=== PATIENT | male | born 1990 | race Caucasian/White ===

== ENCOUNTER 2020-04-21 17:07 | Observation (INO) | payer OTHER ==
[~2020-04-21] VITALS: Ht 170.1 cm; Wt 64.5 kg
[2020-04-21] MEDS ORDERED: PATIENT MAY USE OWN MEDS, ALL PO SCH (17:15)
[2020-04-21 17:28] VITALS: BP 132/78
--- NOTE | 2020-04-21 17:38 | NUR ---
ANN MARIE WAY S admitted to room 418-1, with an admitting diagnosis of Rhabdo, on 04/21/20 from home via ambulatory, accompanied by staff. ANN MARIE WAY introduced to surroundings, call light, bed controls, phone, TV, temperature control, lights, meal times, smoking policy, visitor policy, side rail policy, bathrooms and showers. Patient Rights given to patient in the handbook. ANN MARIE WAY verbalizes understanding that [facility] is not responsible for the loss or damage to any personal effects or valuables that are kept in the patients possession during their hospitalization. The following Patient Care Plans were discussed with the patient: Discharge Planning, pain management, dehydration, and medications. ANN MARIE WAY verbalizes understanding of Interdisciplinary Patient Education. Patient and/or family were informed about the Rapid Response Team and its purpose.
[2020-04-21 17:44] LABS: BASOPHILS % (AUTO) 0 % (0-10); EOSINOPHILS # (AUTO) 0.1 10^3/uL (0.0-0.3); EOSINOPHILS % (AUTO) 1 % (0-10); HEMATOCRIT 47 % (40-54); HEMOGLOBIN 16.1 G/DL (13.3-17.7); LYMPHOCYTES # (AUTO) 1.8 X 10^3 (1.0-4.0); LYMPHOCYTES % (AUTO) 18 % (12-44); MEAN CORPUSCULAR HEMOGLOBIN 29 PG (25-34); MEAN CORPUSCULAR HGB CONC 34 G/DL (32-36); MEAN CORPUSCULAR VOLUME 84 FL (80-99); MEAN PLATELET VOLUME 9.3 FL (7.4-10.4); MONOCYTES # (AUTO) 0.5 X 10^3 (0.0-1.0); MONOCYTES % (AUTO) 5 % (0-12); NEUTROPHILS # (AUTO) 7.6 X 10^3 (1.8-7.8); NEUTROPHILS % (AUTO) 76 % (42-75); PLATELET COUNT 377 10^3/uL (130-400); RED CELL DISTRIBUTION WIDTH 13.7 % (10.0-14.5)
[2020-04-21 17:57] LABS: ALBUMIN 4.4 GM/DL (3.2-4.5); CHLORIDE 105 MMOL/L (98-107); POTASSIUM 3.7 MMOL/L (3.6-5.0); SODIUM 139 MMOL/L (135-145)
[2020-04-21 17:59] LABS: CALCIUM 9.3 MG/DL (8.5-10.1)
[2020-04-21 18:00] LABS: GLUCOSE 104 MG/DL (70-105)
[2020-04-21 18:01] LABS: CARBON DIOXIDE 22 MMOL/L (21-32)
[2020-04-21 18:02] LABS: BILIRUBIN,TOTAL 0.8 MG/DL (0.1-1.0)
[2020-04-21 18:03] LABS: ALKALINE PHOSPHATASE 58 U/L (40-136)
[2020-04-21 18:04] LABS: CREATININE SERUM 0.87 MG/DL (0.60-1.30); GFR ESTIMATED > 60
[2020-04-21 18:05] LABS: BUN/CREATININE RATIO 17
[2020-04-21 18:06] LABS: ALANINE AMINOTRANSFERASE 454 U/L (0-55)
[2020-04-21 18:17] LABS: BILIRUBIN,URINE NEGATIVE (NEGATIVE); CLARITY,URINE CLEAR; COLOR,URINE YELLOW; GLUCOSE, URINE (UA) NEGATIVE (NEGATIVE); KETONES,URINE NEGATIVE (NEGATIVE); LEUKOCYTE ESTERASE ,URINE NEGATIVE (NEGATIVE); NITRITE,URINE NEGATIVE (NEGATIVE); PH,URINE 6.5 (5-9); PROTEIN,URINE 2+ (NEGATIVE)
[2020-04-21] MEDS: NS IV 1000 ML 1,000 ML IV SCH ×3 (18:20→20:36)
[2020-04-21 18:22] LABS: BACTERIA,URINE NEGATIVE /HPF; RBC,URINE RARE /HPF; SQUAMOUS EPITHELIAL CELL,UR RARE /HPF
[2020-04-21 18:26] LABS: CREATINE KINASE MB 27.7 NG/ML (<6.6)
--- OUTSIDE RECORDS SUMMARY | 2020-04-21 18:55 | XMS REPORT | Continuity of Care Document ---
Author Organization Unknown Address Unknown Phone Unavailable Allergies Active Description Code Type Severity Reaction Onset Reported/Identified Relationship to Patient Clinical Status Yes No Known Drug Allergies [id number] Drug Allergy Unknown N/A 04/21/2020 Medications There is no data. Problems There is no data. Procedures There is no data. Results Test Result Range Complete blood count (CBC) with automate d white blood cell (WBC) differential - 04/21/20 17:35 Blood leukocytes automated count (number/volume) 10.0 10*3/uL 4.3-11.0 Blood erythrocytes automated count (number/volume) 5.64 10*6/uL 4.35-5.85 Venous blood hemoglobin measurement (mass/volume) 16.1 g/dL 13.3-17.7 Blood hematocrit (volume fraction) 47 % 40-54 Automated erythrocyte mean corpuscular volume 84 [ foz_us] 80-99 Automated erythrocyte mean corpuscular h emoglobin (mass per erythrocyte) 29 pg 25-34 Automated erythrocyte mean corpuscular h emoglobin concentration measurement (mass/volume) 34 g/dL 32-36 Automated erythrocyte distribution width ratio 13. 7 % 10.0- 14.5 Automated blood platelet count (count/volume) 377 10*3/uL 130-400 Automated blood platelet mean volume measurement 9.3 [foz_us] 7.4-10.4 Automated blood neutrophils/100 leukocytes 76 % 42-75 Automated blood lymphocytes/100 leukocytes 18 % 12-44 Blood monocytes/100 leukocytes 5 % 0-12 Automated blood eosinophils/100 leukocytes 1 % 0-10 Automated blood basophils/100 leukocytes 0 % 0-10 Blood neutrophils automated count (number/volume) 7.6 10*3 1.8-7.8 Blood lymphocytes automated count (number/volume) 1.8 10*3 1.0-4.0 Blood monocytes automated count (number/volume) 0. 5 10*3 0.0-1.0 Automated eosinophil count 0.1 10*3/uL 0 .0-0.3 Automated blood basophil count (count/volume) 0.0 10*3/uL 0.0-0.1 Comprehensive metabolic panel - 04/21/20 17:35 Serum or plasma sodium measurement (moles/volume) 139 mmol/L 135-145 Serum or plasma potassium measurement (moles/volume) 3.7 mmol/L 3.6-5.0 Serum or plasma chloride measurement (moles/volume) 105 mmol/L 98-107 Carbon dioxide 22 mmol/L 21-32 Serum or plasma anion gap determination (moles/volume) 12 mmol/L 5-14 Serum or plasma urea nitrogen measurement (mass/volume ) 15 mg/dL 7-18 Serum or plasma creatinine measurement (mass/volume) 0.87 mg/dL 0.60-1.30 Serum or plasma urea nitrogen/creatinine mass ratio 17 NRG Serum or plasma creatinine measurement w ith calculation of estimated glomerular filtration rate > NRG Serum or plasma glucose measurement (mass/volume) 104 mg/dL 70-105 Serum or plasma calcium measurement (mass/volume) 9.3 mg/dL 8.5-10.1 Serum or plasma total bilirubin measurement (mass/volu me) 0.8 mg/dL 0.1-1.0 Serum or plasma alkaline phosphatase shamika surement (enzymatic activity/volume) 58 U/L 40-136 Serum or plasma aspartate aminotransfera se measurement (enzymatic activity/volume) 1495 U/L 5-34 Serum or plasma alanine aminotransferase measurement (enzymatic activity/volume) 454 U/L 0-55 Serum or plasma protein measurement (mass/volume) 7.0 g/dL 6.4-8.2 Serum or plasma albumin measurement (mass/volume) 4.4 g/dL 3.2-4.5 CALCIUM CORRECTED 9.0 mg/dL 8.5-10.1 Serum or plasma creatine kinase MB measu rement (enzymatic activity/volume) - 04/21/20 17:35 Serum or plasma creatine kinase MB measu rement (enzymatic activity/volume) 27.7 ng/mL <6.6 Myoglobin, serum - 04/21/20 17:35 Myoglobin, serum 28973.0 ng/mL 10.0-92.0 Complete urinalysis with reflex to cultu re - 04/21/20 18:09 Urine color determination YELLOW NRG Urine clarity determination CLEAR NR G Urine pH measurement by test strip 6.5 5-9 Specific gravity of urine by test strip <= 1.016-1.022 Urine protein assay by test strip, semi-quantitative 2+ NEGATIVE Urine glucose detection by automated test strip NE GATIVE NEGATIVE Erythrocytes detection in urine sediment by light micr oscopy 3+ NEGATIVE Urine ketones detection by automated test strip NE GATIVE NEGATIVE Urine nitrite detection by test strip NEGATIVE NEGATIVE Urine total bilirubin detection by test strip NEGA TIVE NEGATIVE Urine urobilinogen measurement by automated test strip (mass/volume) 0.2 mg/dL < = 1.0 Urine leukocyte esterase detection by dipstick NEG ATIVE NEGATIVE Automated urine sediment erythrocyte cou nt by microscopy (number/high power field) RARE NRG Automated urine sediment leukocyte count by microscopy (number/high power field) NONE NRG Bacteria detection in urine sediment by light microsco py NEGATIVE NRG Squamous epithelial cells detection in u rine sediment by light microscopy RARE NRG Crystals detection in urine sediment by light microsco py NONE NRG Casts detection in urine sediment by light microscopy NONE NRG Mucus detection in urine sediment by light microscopy NEGATIVE NRG Complete urinalysis with reflex to culture NO NRG Encounters ACCT No. Visit Date/Time Discharge Status Pt. Type Provider Facility Loc./Unit Complaint [id number] 09/14/2019 11:46:35 09/14/2019 23:59:5 9 CLS Outpatient [id number] 04/21/2020 17:16:[address] Inpatient RUSSELL LAMA DO [facility] 4TH RHABDOMYOLYSIS
--- OUTSIDE RECORDS SUMMARY | 2020-04-21 18:55 | XMS REPORT | CCD ---
Author Author Nathaniel Sharma D.O. [employer] Organization RUSSELL SHARMA DO [facility] Address [address] [place] [address] Phone Care Team Providers Care Director Market Intelligence Name Role Phone PP Unavailable CCM Unavailable Summary Purpose Interface Exchange Insurance Providers Payer name Policy type / Coverage type Covered democrat ID Effective Begin Date Effective End Date ABS FOR [employer] Commercial Insurance [id number] Unknown Family history Grandmother Diagnosis Age At Onset Cancer Unknown Grandmother Diagnosis Age At Onset Diabetes mellitus Type 2 Unknown Mother Diagnosis Age At Onset Hypertension Unknown Grandfather Diagnosis Age At Onset Lung Cancer Unknown Social History Social History Element Codes Description Effective Dates Marital status Unknown S verna 02/24/2019 Employment Unknown Curre ntly employed [employer] 02/24/[address]: 013774387 Currently uses smokeless tobacco quit 9 years ago 02/24/[address]: 355655 Currently drinks alcohol occasional 02/24/2019 Frequency of drinks SNOMED CT: 047859293 Drinks rarely 02/24/2019 Has the patient ever used illegal drugs? Unknown Has never used illegal drugs 019 Allergies, Adverse Reactions, Alerts Substance Reaction Codes Entered Date Inactivated Date Status * NO KNOWN FOOD VANDANA RGIES Unknown 02/24/2019 No Inactive Date Active * NO KNOWN ENVIRONME NTAL ALLERGIES Unknown 02/24/2019 No Inactive Date Active * NO KNOWN DRUG VANDANA RGIES Unknown 02/24/2019 No Inactive Date Active Past Medical History Illness Codes Condition Status Onset Date Resolved Date Allergic rhinitis du e to pollen ICD-9: 477.9 ICD-10: J30.1 Active 06/29/2019 Unknown Acute cystitis witho ut hematuria ICD-9: 595.0 ICD-10: N30.00 Active 02/24/2019 Unknown Frequency of micturi tion ICD-9: 788.41 ICD-10: R35.0 Active 02/24/2019 Unknown Low back pain ICD-9: 599.70 ICD-10: M54.5 Active 02/24/2019 Unknown Problems Condition Codes Effectiv e Dates Condition Status Allergic rhinitis du e to pollen ICD-9: 477.9 ICD-10: J30.1 06/29/2019 Active Acute cystitis witho ut hematuria ICD-9: 595.0 ICD-10: N30.00 02/24/2019 Active Frequency of micturi tion ICD-9: 788.41 ICD-10: R35.0 02/24/2019 Active Low back pain ICD-9: 599.70 ICD-10: M54.5 02/24/2019 Active Medications Medication Codes Instruc tions Start Date Stop Date Sta tus Fill Instructions Cipro 500 mg tablet RxNorm: 295524 1 Tablet(s) PO BID 02/24/2019 03/05/2019 Inactive cetirizine 10 mg tablet RxNorm: 8577987 1 Tablet(s) PO QD as needed No Start Date Active Flonase Allergy Reli ef 50 mcg/actuation nasal spray,suspension RxNorm: 7396153 2 [place] NASAL QD No Start Date Active Medication Administered No Medication Administered data Immunizations No Immunization data Assessments Condition Codes Effectiv e Dates Allergic rhinitis due to pollen ICD- 10: J30.1 ICD-9: 477.9 06/29/2019 Low back pain ICD-10: M54.5 ICD-9: 599.70 02/24/2019 Acute cystitis without hematuria ICD -10: N30.00 ICD-9: 595.0 02/24/2019 Frequency of micturition ICD-10: R35 .0 ICD-9: 788.41 02/24/2019 Reason For Visit Reason For Visit Effective Dates Notes injection(s) 06/29/2019 ~generic 02/24/2019 New Patient---establishing visit Results Observation Observation Code Item Item Code Result Date COMPLETE BLOOD COUNT 7525167 WBC 4.8 10e9/L 02/24/2019 COMPLETE BLOOD COUNT 2738125 RBC 5.55 10e12/L 9 COMPLETE BLOOD COUNT 9958050 HEMOGLOBIN 16.0 g/dL 02/24/2019 COMPLETE BLOOD COUNT 1822639 HEMATOCRIT 48.0 % 02/24/2019 COMPLETE BLOOD COUNT 9695778 MCV 86.5 fL 02/24/2019 COMPLETE BLOOD COUNT 4904380 MCH 28.8 pg 02/24/2019 COMPLETE BLOOD COUNT 5996599 MCHC 33.3 g/dL 02/24/2019 COMPLETE BLOOD COUNT 2025800 PLATELET COUNT 398 10e9/L 02/24/2019 COMPLETE BLOOD COUNT 9685584 Mean Plt Volume 9.5 fL 02/24/2019 COMPLETE BLOOD COUNT 9028657 Neut Auto 51.1 % 02/24/2019 COMPLETE BLOOD COUNT 4610395 Lymph Auto 39.1 % 02/24/2019 COMPLETE BLOOD COUNT 4366797 Garza Auto 6.7 % 02/24/2019 COMPLETE BLOOD COUNT 3181361 RDW 12.7 % 02/24/2019 COMPLETE BLOOD COUNT 8360672 Eos Auto 2.5 % 02/24/2019 COMPLETE BLOOD COUNT 7199896 Baso Auto 0.6 % 02/24/2019 COMPLETE BLOOD COUNT 4245225 Neutrophil Abs 2.45 10e9/L 02/24/2019 COMPLETE BLOOD COUNT 3996997 Lymphocyte Abs 1.88 10e9/L 02/24/2019 COMPLETE BLOOD COUNT 1997036 Monocyte Abs 0.32 10e9/L 02/24/2019 COMPLETE BLOOD COUNT 4792241 Eosinophil Abs 0.12 10e9/L 02/24/2019 COMPLETE BLOOD COUNT 4383254 RDW-SD 39.9 fL 02/24/2019 COMPLETE BLOOD COUNT 0332034 Basophil Abs 0.03 10e9/L 02/24/2019 COMPREHENSIVE METABOLIC 70235 AST 22 U/L 02/24/2019 COMPREHENSIVE METABOLIC 50983 ALT 39 U/L 02/24/2019 COMPREHENSIVE METABOLIC 74828 BUN 11 mg/dL 02/24/2019 COMPREHENSIVE METABOLIC 75803 ALBUMIN 4.7 g/dL 02/24/2019 COMPREHENSIVE METABOLIC 50346 CHLORIDE 106 mmol/L 02/24/2019 COMPREHENSIVE METABOLIC 32050 Bili Total 0.5 mg/dL 02/24/2019 COMPREHENSIVE METABOLIC 05365 ALK PHOS 51 U/L 02/24/2019 COMPREHENSIVE METABOLIC 12571 SODIUM 140 mmol/L 02/24/2019 COMPREHENSIVE METABOLIC 97168 CREATININE 0.87 mg/dL 02/24/2019 COMPREHENSIVE METABOLIC 37824 CALCIUM 9.5 mg/dL 02/24/2019 COMPREHENSIVE METABOLIC 59319 POTASSIUM 3.9 mmol/L 02/24/2019 COMPREHENSIVE METABOLIC 44758 Total Protein 7.0 g/dL 02/24/2019 COMPREHENSIVE METABOLIC 12770 Glucose 98 mg/dL 02/24/2019 COMPREHENSIVE METABOLIC 98796 Bicarbonate 28 mmol/L 02/24/2019 COMPREHENSIVE METABOLIC 69584 AGAP 6 mmol/L 02/24/2019 GFR CALC 8789117 GFR Non Afr Amr >60 mL/min 02/24/2019 GFR CALC 6789219 GFR Afr Amr >60 mL/min 02/24/2019 PSA EQUIMOLAR EDELMIRA 83065 PSA Total 0.61 ng/mL 02/24/2019 Review of Systems System Result Effective Dates Constitutional No night sweats 02/24/2019 Constitutional fatigue 0 02/24/2019 Constitutional No fever 02/24/2019 Constitutional No insomnia 02/24/2019 Constitutional No weight loss 02/24/2019 Eyes No eye pain 019 Eyes No photophobia 04/2019 Eyes No vision change Eyes No visual disturbance 02/24/2019 Ears/Nose/Throat/Neck No hearing loss 02/24/2019 Ears/Nose/Throat/Neck No nasal discharge 02/24/2019 Ears/Nose/Throat/Neck No sinus congestion 02/24/2019 Ears/Nose/Throat/Neck No sore throat 02/24/2019 Cardiovascular No arrhythmia 02/24/2019 Cardiovascular No chest pain/pressure 02/24/2019 Cardiovascular No edema 02/24/2019 Cardiovascular No exercise intolerance 02/24/2019 Cardiovascular No orthopnea 02/24/2019 Cardiovascular No palpitations 02/24/2019 Respiratory No asthma Respiratory No cough 04/2019 Respiratory No dyspnea 0 02/24/2019 Respiratory No pleuritic pain 02/24/2019 Respiratory No productive sputum 02/24/2019 Respiratory No wheezing 02/24/2019 Gastrointestinal No hemorrhoids 02/24/2019 Gastrointestinal No hepatitis 02/24/2019 Gastrointestinal No abdominal pain 02/24/2019 Gastrointestinal No constipation 02/24/2019 Gastrointestinal No diarrhea 02/24/2019 Gastrointestinal No gastroesophageal reflu x 02/24/2019 Gastrointestinal No melena 02/24/2019 Gastrointestinal nausea 02/24/2019 Gastrointestinal No vomiting 02/24/2019 Genitourinary/Nephrology No dysuria 02/24/2019 Genitourinary/Nephrology No nocturia 02/24/2019 Genitourinary/Nephrology No urinary incontinence 02/24/2019 Musculoskeletal No muscle weakness 02/24/2019 Musculoskeletal No myalgias 02/24/2019 Musculoskeletal No stiffness 02/24/2019 Musculoskeletal No swelling 02/24/2019 Dermatologic No rash 04/2019 Dermatologic No scar 04/2019 Neurologic No dizziness 02/24/2019 Neurologic No headache 0 02/24/2019 Neurologic No neck pain 02/24/2019 Neurologic No syncope Psychiatric No anxiety 0 02/24/2019 Psychiatric No depression 02/24/2019 Endocrine No goiter 050 04/2019 Endocrine No hyperglycemia 02/24/2019 Endocrine No hypoglycemia 02/24/2019 Hematologic/Lymphatic No abnormal ec chymoses 02/24/2019 Hematologic/Lymphatic No petechiae 02/24/2019 Hematologic/Lymphatic No abnormal bl eeding and bruising 02/24/2019 Hematologic/Lymphatic No anemia 02/24/2019 Hematologic/Lymphatic No lymph node enlargement/mass 02/24/2019 Allergy/Immunology No food allergy 02/24/2019 Genitourinary/Nephrology urinary frequency 02/24/2019 Physical Exam Exam Name System Name It em Name Status Result Effective Dates Notes Full Exam - General Constitutional general appearance Overall: well nourished 02/24/2019 None Full Exam - General Constitutional general appearance Overall: well developed 02/24/2019 None Full Exam - General Constitutional general appearance Overall: in no acute distress 02/24/2019 None Full Exam - General Neurologic mental status Overall: alert 9 None Full Exam - General Neurologic mental status Overall: oriented 02/24/2019 None Full Exam - General Psychiatric mood and affect Overall: normal mood and affect 02/24/2019 None Full Exam - General Abdomen abdominal exam Overall: no masses 02/24/2019 None Full Exam - General Abdomen abdominal exam Overall: normal bowel sounds 02/24/2019 None Full Exam - General Abdomen abdominal exam Overall: soft 02/24/2019 None Full Exam - General Abdomen abdominal exam Right lower quadrant: tender to palp ation 02/24/2019 None Full Exam - General Abdomen abdominal exam Suprapubic: tender to palpation 02/24/2019 None Full Exam - General Cardiovascular auscultation of heart Overall: regular rate 02/24/2019 None Full Exam - General Cardiovascular auscultation of heart Overall: normal heart sounds 02/24/2019 None Full Exam - General Cardiovascular auscultation of heart Overall: no murmurs 02/24/2019 None Full Exam - General Cardiovascular extremities Overall: no clubbing 02/24/2019 None Full Exam - General Cardiovascular extremities Overall: No edema 02/24/2019 None Full Exam - General Cardiovascular extremities Overall: No cyanosis 02/24/2019 None Full Exam - General Respiratory auscultation Overall: breath sounds clear bilater ally 02/24/2019 None Full Exam - General Neck inspection of neck Overall: normal size 02/24/2019 None Full Exam - General Neck inspection of neck Overall: no masses 02/24/2019 None Full Exam - General Ears/Nose/Throat otoscopic exam Overall: external auditory canals clear 02/24/2019 None Full Exam - General Ears/Nose/Throat otoscopic exam Overall: tympanic membranes clear 02/24/2019 None Full Exam - General Ears/Nose/Throat internal nose Overall: bilateral nasal cavities clear 02/24/2019 None Full Exam - General Ears/Nose/Throat oral cavity/pharynx/larynx Overall: oral mucosa clear 02/24/2019 None Full Exam - General Musculoskeletal gait and station Overall: normal gait 02/24/2019 None Full Exam - General Musculoskeletal gait and station Overall: normal station 02/24/2019 None Procedures Procedure Codes Date THER/PROPH/DIAG INJ SC/IM CPT-4: 86171 06/29/2019 TRIAMCINOLONE ACET I [place] NOS CPT-4: J3301 06/29/2019 DEXAMETHASONE SODIUM PHOS CPT-4: J1100 06/29/2019 URINALYSIS NONAUTO W /O SCOPE CPT-4: 96828 02/24/2019 URINE CULTURE/ COLON Y COUNT CPT-4: 22345 02/24/2019 Vital Signs Date Vital 02/24/2019 Blood Pressure 1: 126/84 Code: 8480-6 BMI: 24.5 Code: 48418-4 Heart Rate 1: 76 bpm Height: 5'6" Respiratory Rate: 18 bpm SpO2: 98% Temperature: 36.9 (C ) / 98.4 (F) Weight: 152 lbs Functional Status No Functional Status data History of Present Illness Symptom Name Status Resu lt Effective Date Notes Quality acute 02/24/2019 None Quality hesitancy 02/24/2019 None Quality straining 02/24/2019 None Onset of Symptom 1 wee ks ago 02/24/2019 None Advance Directives No Advance Directive data Encounters Encounter Performer Loca tion Codes Date (55220) NURSE/OUTPAT IENT VISIT EST Diagnosis: Allergic rhinitis due to pollen[ICD10: J30.1] Russell Woodruffgrace MckeonChidi [facility] CPT-4: 98395 06/29/2019 OFFICE/OUTPATIENT SIT NEW Diagnosis: Frequency of micturition[ICD10: R35.0] Diagnosis: Low back pain[ICD10: M54.5] Diagnosis: Acute cystitis without hematuria[ICD10: N30.00] Russell Albertoganga RUSSELL LINTON NDER DO [facility] CPT-4: 08833 02/24/2019 Plan of Care Planned Activity Notes C odes Status Date Visit Diagnosis Plan: Acute cystitis without hematuria Discussion: Cover with cipro until above results obtained Push water/hydrate ICD-9 : 595.0 ICD-10 : N30.00 02/24/2019 Visit Diagnosis Plan: Frequency of micturition Discussion: Culture urine Check CBC, CMP, PSA to assess for elevation in WBC count or possible prostatitis ICD-9 : 788.41 ICD-10 : R35.0 02/24/2019 Appointment: Russell Sharma WPtel[facility] [id number] [id number] SIGN RECORDS RELEASE NEW PATIENT 02/24/2019 Patient Education: Cipro- [employer] Coupon [id number] [email or web address] Completed 02/24/2019 Instructions No Instructions
--- NOTE | 2020-04-21 18:57 | History & Physical ---
History of Present Illness History of Present Illness Reason for visit/HPI This is a 30 year old male who has been working out recently doing weight lifting and then running. Admits that he probably has not been hydrating well enough. He noticed about 2 days ago that his muscles were getting sore but felt it was just from hitting the weights hard. However, this morning he had generalized body aches and it was difficult to get up out of bed. He also noticed that his urine was very dark. 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 These were sent to my office and after talking with the patient it was decided he should be directly admitted for aggressive IVF rehydration and monitoring of labs in response to hydration. Date of Admission Apr 21, 2020 at 17:16 Date Seen by a Provider: Apr 21, 2020 Time Seen by a Provider: 18:52 I consulted on this patient on 04/21/20 18:52 Attending Physician Kenyatta Sharma DO Admitting Physician Kenyatta Sharma DO Consult Allergies and Home Medications Allergies Coded Allergies: No Known Drug Allergies (Unverified , 04/21/20) Patient Home Medication List Home Medication List Reviewed: Yes Past Bdhxfzd-Effnlp-Ydzrbe Hx Past Med/Social Hx: Reviewed Nursing Past Med/Soc Hx Patient Social History Marrital Status: single Alcohol Use: Occasionally Uses Recreational Drug Use: No Smoking Status: Never a Smoker Physical Abuse Screen: No Sexual Abuse: No Recent Foreign Travel: No Contact w/other who traveled: No Recent Infectious Disease Expo: No Seasonal Allergies Seasonal Allergies: Yes Past Medical History History of Blood Disorders: No Review of Systems Constitutional: weakness EENTM: No see HPI, No no symptoms reported, No ear discharge, No hearing loss, No ear pain, No blurred vision, No double vision, No eye pain, No tearing, No vision loss, No dental problems, No hoarseness, No mouth pain, No mouth swelling, No epistaxis, No nose congestion, No nose pain, No throat pain, No throat swelling, No other Respiratory: No no symptoms reported, No see HPI, No cough, No dyspnea on exertion, No hemoptysis, No orthopnea, No phlegm, No short of breath, No stridor, No wheezing, No other Cardiovascular: No no symptoms reported, No see HPI, No chest pain, No edema, No Hx of Intervention, No palpitations, No syncope, No vascular heart diseas, No other Gastrointestinal: No RUQ, No LUQ, No RLQ, No LLQ, No no symptoms reported, No see HPI, No abdominal pain, No constipation, No diarrhea, No dysphagia, No hematemesis, No heartburn, No jaundice, No loss of appetite, No melena, No nausea, No vomiting, No other Genitourinary: other (dark urine) Musculoskeletal: back pain, joint pain, muscle pain, muscle weakness Psychiatric/Neurological: Weakness Physical Exam Vital Signs Vital Signs - First Documented 04/21/20 17:28 Temp 37.2 Pulse 89 Resp 18 B/P (MAP) 132/78 Pulse Ox 97 O2 Delivery Room Air Capillary Refill : Height, Weight, BMI Height: '" Weight: lbs. oz. kg; 22.25 BMI Method: General Appearance: No Apparent Distress HEENT: Normal ENT Inspection Neck: Supple Respiratory: Lungs Clear Cardiovascular: Regular Rate, Rhythm Gastrointestinal: Normal Bowel Sounds, Non Tender, Soft Rectal: Deferred Back: No CVA Tenderness Extremity: Non Tender, No Calf Tenderness, No Pedal Edema Neurologic/Psychiatric: Alert, Oriented x3 Skin: Warm/Dry Lymphatic: No Adenopathy Comments Laboratory Tests 04/21/20 17:35: White Blood Count 10.0, Red Blood Count 5.64, Hemoglobin 16.1, Hematocrit 47, Mean Corpuscular Volume 84, Mean Corpuscular Hemoglobin 29, Mean Corpuscular Hemoglobin Concent 34, Red Cell Distribution Width 13.7, Platelet Count 377, Mean Platelet Volume 9.3, Neutrophils (%) (Auto) 76H, Lymphocytes (%) (Auto) 18, Monocytes (%) (Auto) 5, Eosinophils (%) (Auto) 1, Basophils (%) (Auto) 0, Neutrophils # (Auto) 7.6, Lymphocytes # (Auto) 1.8, Monocytes # (Auto) 0.5, Eosinophils # (Auto) 0.1, Basophils # (Auto) 0.0, Sodium Level 139, Potassium Level 3.7, Chloride Level 105, Carbon Dioxide Level 22, Anion Gap 12, Blood Urea Nitrogen 15, Creatinine 0.87, Estimat Glomerular Filtration Rate > 60, BUN/Creatinine Ratio 17, Glucose Level 104, Calcium Level 9.3, Corrected Calcium 9.0, Total Bilirubin 0.8, Aspartate Amino Transf (AST/SGOT) 1495H, Alanine Aminotransferase (ALT/SGPT) 454H, Alkaline Phosphatase 58, Creatine Kinase MB 27.7*H, Myoglobin 00667.0H, Total Protein 7.0, Albumin 4.4, Lyme Disease Screen IgG & IgM Ab [Pending], Lyme Antibody Interpretation [Pending], Ehrlichia chaffeensis IgG Antibody [Pending], Ehrlichia chaffeensis IgM Antibody [Pending], Spotted Fever Group IgG Antibody [Pending], Spotted Fever Group IgM Antibody [Pending], [place] Antibody [Pending] 04/21/20 18:09: Urine Color YELLOW, Urine Clarity CLEAR, Urine pH 6.5, Urine Specific Elizabeth <=1.005, Urine Protein 2+H, Urine Glucose (UA) NEGATIVE, Urine Ketones NEGATIVE, Urine Nitrite NEGATIVE, Urine Bilirubin NEGATIVE, Urine Urobilinogen 0.2, Urine Leukocyte Esterase NEGATIVE, Urine RBC (Auto) 3+H, Urine RBC RARE, Urine WBC NO NE, Urine Squamous Epithelial Cells RARE, Urine Crystals NONE, Urine Bacteria NEGATIVE, Urine Casts NONE, Urine Mucus NEGATIVE, Urine Culture Indicated NO Assessment/Plan Assessment and Plan 1. Acute Rhabdomyolysis--admit and give 2L NS bolus then continue NS at 150cc/hr, repeat labs in AM 2. Recent Tick Bite--check tick panel Admission Diagnosis Admission Status: Observation Clinical Quality Measures DVT/VTE Risk/Contraindication: RFS Level Per Nursing on Admit: 0=No Risk/No VTE PPX KENYATTA SHARMA DO Apr 21, 2020 18:57
[2020-04-21] MEDS ORDERED: TEMAZEPAM 7.5 MG CAP (RESTORIL) PO PRN (19:00)
[2020-04-21 20:00] VITALS: BP 134/72
[2020-04-22 00:29] VITALS: BP 131/76
--- NOTE | 2020-04-22 00:49 | NUR ---
PRN RESTORIL GIVEN AT THIS TIME D/T PT UNABLE TO SLEEP.
[2020-04-22] MEDS: NS IV 1000 ML 1,000 ML IV SCH ×3 (03:22→12:46)
[2020-04-22 03:37] VITALS: BP 128/85
[2020-04-22 07:31] LABS: ALBUMIN 3.5 GM/DL (3.2-4.5); CHLORIDE 112 MMOL/L (98-107); SODIUM 141 MMOL/L (135-145)
[2020-04-22 07:32] LABS: CALCIUM 8.2 MG/DL (8.5-10.1)
[2020-04-22 07:33] LABS: GLUCOSE 90 MG/DL (70-105); TOTAL PROTEIN 5.5 GM/DL (6.4-8.2)
[2020-04-22 07:34] LABS: CARBON DIOXIDE 22 MMOL/L (21-32)
[2020-04-22 07:35] LABS: BILIRUBIN,TOTAL 0.9 MG/DL (0.1-1.0)
[2020-04-22 07:37] LABS: ALKALINE PHOSPHATASE 46 U/L (40-136); CREATININE SERUM 0.74 MG/DL (0.60-1.30); GFR ESTIMATED > 60
[2020-04-22 07:38] LABS: BUN/CREATININE RATIO 14
[2020-04-22 07:40] LABS: ALANINE AMINOTRANSFERASE 384 U/L (0-55)
[2020-04-22 08:00] VITALS: BP 121/60
[2020-04-22 08:35] LABS: CREATINE KINASE 74580 U/L (30-200)
[2020-04-22] MEDS ORDERED: NS IV 1000 ML 1,000 ML IV SCH (10:45)
--- NOTE | 2020-04-22 10:47 | Discharge Summary ---
Discharge Summary Hospital Course Was the Problem List Reviewed?: Yes Hospital Course Date of Admission: Apr 21, 2020 at 17:16 Admission Diagnosis : Family Physician/Provider: Kenyatta Sharma DO Date of Discharge: 04/22/20 Discharge Diagnosis: Acute Rhabdomyolysis Hospital Course: This is a 30 year old male who has been working out recently doing weight li fting and then running. Admits that he probably has not been hydrating well enough. He noticed about 2 days ago that his muscles were getting sore but felt it was just from hitting the weights hard. However, the morning of admission he had generalized body aches and it was difficult to get up out of bed. He also noticed that his urine was very dark. 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 These were sent to my office and after talking with the patient it was decided he should be directly admitted for aggressive IVF rehydration and monitoring of labs in response to hydration. The patient was given a 2L bolus of NS on admission and then continued with IVFs through the night. By the following morning he still complained of muscle soreness but his urine was much clearer and he was no longer having muscle cramping. I discussed staying another night for further IVFs but he preferred to go home and hydrate at home. His liver enz ymes, CK and myoglobin were all coming down so it was decided to give him another bolus of IVFs then continue IVFs and discharge him in late afternoon if he was feeling well. He was instructed to rest this weekend with no working out and to hydrate. We discussed pedialyte as well as propel packets, at least a gallon of water a day and no alcohol. He will repeat lab on Saturday (3 days) and fwup with me next week. Labs and Pending Lab Test: Laboratory Tests 04/21/20 17:35: White Blood Count 10.0, Red Blood Count 5.64, Hemoglobin 16.1, Hematocrit 47, Mean Corpuscular Volume 84, Mean Corpuscular Hemoglobin 29, Mean Corpuscular Hemoglobin Concent 34, Red Cell Distribution Width 13.7, Platelet Count 377, Mean Platelet Volume 9.3, Neutrophils (%) (Auto) 76H, Lymphocytes (%) (Auto) 18, Monocytes (%) (Auto) 5, Eosinophils (%) (Auto) 1, Basophils (%) (Auto) 0, Neutrophils # (Auto) 7.6, Lymphocytes # (Auto) 1.8, Monocytes # (Auto) 0.5, Eosinophils # (Auto) 0.1, Basophils # (Auto) 0.0, Sodium Level 139, Potassium Level 3.7, Chloride Level 105, Carbon Dioxide Level 22, Anion Gap 12, Blood Urea Nitrogen 15, Creatinine 0.87, Estimat Glomerular Filtration Rate > 60, BUN/Creatinine Ratio 17, Glucose Level 104, Calcium Level 9.3, Corrected Calcium 9.0, Total Bilirubin 0.8, Aspartate Amino Transf (AST/SGOT) 1495H, Alanine Aminotransferase (ALT/SGPT) 454H, Alkaline Phosphatase 58, Creatine Kinase MB 27.7*H, Myoglobin 16336.0H, Total Protein 7.0, Albumin 4.4, Lyme Disease Screen IgG & IgM Ab [Pending], Lyme Antibody Interpretation [Pending], Ehrlichia chaffeensis IgG Antibody [Pending], Ehrlichia chaffeensis IgM Antibody [Pending] , Spotted Fever Group IgG Antibody [Pending], Spotted Fever Group IgM Antibody [Pending], [place] Antibody [Pending] 04/21/20 18:09: Urine Color YELLOW, Urine Clarity CLEAR, Urine pH 6.5, Urine Specific [place] <=1.005, Urine Protein 2+H, Urine Glucose (UA) NEGATIVE, Urine Ketones NEGATIVE, Urine Nitrite NEGATIVE, Urine Bilirubin NEGATIVE, Urine Urobilinogen 0.2, Urine Leukocyte Esterase NEGATIVE, Urine RBC (Auto) 3+H, Urine RBC RARE, Urine WBC NONE, Urine Squamous Epithelial Cells RARE, Urine Crystals NONE, Urine Bacteria NEGATIVE, Urine Casts NONE, Urine Mucus NEGATIVE, Urine Culture Indicated NO 04/22/20 06:21: Sodium Level 141, Potassium Level 4.0, Chloride Level 112H, Carbon Dioxide Level 22, Anion Gap 7, Blood Urea Nitrogen 10, Creatinine 0.74, Estimat Glomerular Filtration Rate > 60, BUN/Creatinine Ratio 14, Glucose Level 90, Calcium Level 8.2L, Corrected Calcium 8.6, Total Bilirubin 0.9, Aspartate Amino Transf (AST/SGOT) 1045#H, Alanine Aminotransferase (ALT/SGPT) 384H, Alkaline Phosphatase 46, Myoglobin 5137.4H, Total Protein 5.5L, Albumin 3.5, Total Creatine Kinase [id number] Assessment/Pt Instructions 1. Acute rhabdomyolysis--improving Discharge Instructions Discharge Diet: No Restrictions Activity as Tolerated: Yes Discharge Physical Examination Vital Signs Vital Signs Date Time Temp Pulse Resp B/P (MAP) Pulse Ox O2 Delivery O2 Flow Rate FiO2 04/22/20 08:00 36.5 69 18 121/60 (80) 98 Room Air General Appearance: No Apparent Distress Respiratory: Lungs Clear Cardiovascular: Regular Rate, Rhythm Skin: Warm/Dry Neurologic/Psychiatric: Alert, Oriented x3 Allergies: Coded Allergies: No Known Drug Allergies (Unverified , 04/21/20) Discharge Summary Date of Admission Apr 21, 2020 at 17:16 Date of Discharge Clinical Quality Measures DVT/VTE Risk/Contraindication: RFS Level Per Nursing on Admit: 0=No Risk/No VTE PPX KENYATTA SHARMA DO Apr 22, 2020 10:47
[2020-04-22 12:00] VITALS: BP 150/72
[2020-04-22 15:51] VITALS: BP 145/63
[2020-04-22 15:53] VITALS: BP 145/63
== END 2020-04-22 15:55 | disposition home or self-care (01) ==
LOC: 4TH 17:16
PROVIDERS: ADMIT Family Medicine; ATTEND Family Medicine
DX: M62.82 Rhabdomyolysis (principal); R74.8 Abnormal levels of other serum enzymes
CPT/HCPCS: 36415; 80053; 81000; 82550; 82553; 83874; 85025; 86618; 86666; 86668; 86757; 99211; G0378